=== PATIENT | male | born 1990 | race Caucasian/White ===

== ENCOUNTER 2022-04-06 20:20 | Emergency (ER) | payer OTHER ==
[2022-04-06] MEDS ORDERED: Pantoprazole 40 MG VIAL ONE (20:53)
[2022-04-06] MEDS ORDERED: Famotidine/PF 20 mg/2ml Vial ONE (20:53)
[2022-04-06 21:15] LABS: Bilirubin Negative (Negative); Blood, Urine Negative (Negative); Clarity Clear (Clear); Glucose, Urine (Dipstick) Normal (Negative); Ketone, Urine Negative (Negative); Leukocyte Negative Leu/uL (Negative); Nitrite Negative (Negative); Protein, Urine (Dipstick) 20 mg/dL (Neg-Trace); Specific Gravity, Urine 1.032 (1.002-1.036); Urobilinogen 3 mg/dL (Less than 2)
[2022-04-06 21:15] LABS: #Basophils 0.1 thou/uL (0.0-0.2); #Eosinphils 0.1 thou/uL (0.0-0.7); #Lymphocytes 2.5 thou/uL (1.20-3.40); #Monocytes 0.7 thou/uL (0.11-0.59); #Neutrophils 3.7 thou/uL (1.40-6.50); %Basophils 0.9 % (0.0-1.0); %Eosinophils 2.1 % (0.0-10.0); %Lymphocytes 35.1 % (21.0-51.0); %Monocytes 9.5 % (0.0-10.0); %Neutrophils 52.4 % (42.0-75.0); Hemoglobin 16.5 g/dL (14.0-18.0); Mean Corpuscular HGB CONC 33.6 g/dL (32.0-36.0); Mean Corpuscular Hemoglobin 30.8 pg (27.0-31.0); Mean Corpuscular Volume 91.7 fL (78.0-98.0); Mean Platelet Volume 6.2 fL (7.4-10.4); Platelet Count 261 thou/uL (130-400); RBC Distribution Width 12.2 % (11.5-14.5); Red Blood Cell (RBC) Count 5.34 mill/uL (4.70-6.10)
[2022-04-06 21:37] LABS: ALT (SGPT) 55 U/L (8-55); AST (SGOT) 27 U/L (5-34); Albumin 4.2 g/dL (3.5-5.0); Alkaline Phosphatase 80 U/L (40-110); Anion Gap 13 mmol/L (10-20); BUN (Urea Nitrogen) 11 mg/dL (8.9-20.6); Bilirubin, Total 0.5 mg/dL (0.2-1.2); Calc. Creatinine Clearance 0 mL/min (70-130); Calcium 8.8 mg/dL (7.8-10.44); Carbon Dioxide 27 mmol/L (22-29); Chloride 104 mmol/L (98-107); Globulin 3.4 g/dL (2.4-3.5); Glucose 116 mg/dL (70-105); Lipase 31 U/L (8-78); Potassium 3.5 mmol/L (3.5-5.1); Protein, Total 7.6 g/dL (6.0-8.3); Sodium 140 mmol/L (136-145)
== END 2022-04-06 22:24 | disposition home or self-care (01) ==
LOC: ERS 20:20
DX: R10.84 Generalized abdominal pain (principal); I10 Essential (primary) hypertension; K21.9 Gastro-esophageal reflux disease without esophagitis; Z79.899 Other long term (current) drug therapy
CPT/HCPCS: 36415; 80053; 81003; 83690; 84484; 85025; 93005; 96361; 96374; 96375; C9113; S0028

== ENCOUNTER 2022-04-11 00:51 | Emergency (ER) | payer OTHER | END 2022-04-11 03:42 | disposition home or self-care (01) | LOC: ERS 00:51 | DX: I49.1 Atrial premature depolarization (principal); R00.2 Palpitations; I10 Essential (primary) hypertension; I48.92 Unspecified atrial flutter; K21.9 Gastro-esophageal reflux disease without esophagitis; Z79.899 Other long term (current) drug therapy | CPT/HCPCS: 93005 ==

== ENCOUNTER 2022-04-20 11:31 | Emergency (ER) | payer OTHER ==
[2022-04-20 13:24] LABS: #Basophils 0.1 thou/uL (0.0-0.2); #Eosinphils 0.1 thou/uL (0.0-0.7); #Lymphocytes 1.7 thou/uL (1.20-3.40); #Monocytes 0.6 thou/uL (0.11-0.59); #Neutrophils 5.9 thou/uL (1.40-6.50); %Basophils 0.9 % (0.0-1.0); %Eosinophils 1.2 % (0.0-10.0); %Lymphocytes 20.7 % (21.0-51.0); %Monocytes 6.6 % (0.0-10.0); %Neutrophils 70.6 % (42.0-75.0); Mean Corpuscular HGB CONC 34.1 g/dL (32.0-36.0); Mean Corpuscular Hemoglobin 30.9 pg (27.0-31.0); Mean Corpuscular Volume 90.8 fL (78.0-98.0); Mean Platelet Volume 6.5 fL (7.4-10.4); Platelet Count 251 thou/uL (130-400); RBC Distribution Width 11.9 % (11.5-14.5); Red Blood Cell (RBC) Count 5.16 mill/uL (4.70-6.10); White Blood Cell (WBC) Count 8.3 thou/uL (4.8-10.8)
[2022-04-20 13:48] LABS: ALT (SGPT) 59 U/L (8-55); AST (SGOT) 26 U/L (5-34); Albumin 4.5 g/dL (3.5-5.0); Alkaline Phosphatase 82 U/L (40-110); Anion Gap 13 mmol/L (10-20); BUN (Urea Nitrogen) 9 mg/dL (8.9-20.6); Bilirubin, Total 0.6 mg/dL (0.2-1.2); Calc. Creatinine Clearance 0 mL/min (70-130); Calcium 9.4 mg/dL (7.8-10.44); Carbon Dioxide 26 mmol/L (22-29); Chloride 106 mmol/L (98-107); Globulin 3.1 g/dL (2.4-3.5); Glucose 96 mg/dL (70-105); Potassium 4.1 mmol/L (3.5-5.1); Protein, Total 7.6 g/dL (6.0-8.3); Sodium 141 mmol/L (136-145)
== END 2022-04-20 14:56 | disposition home or self-care (01) ==
LOC: ERS 11:31
DX: R60.0 Localized edema (principal); I10 Essential (primary) hypertension; K21.9 Gastro-esophageal reflux disease without esophagitis; Z79.899 Other long term (current) drug therapy
CPT/HCPCS: 36415; 71045; 80053; 83880; 84484; 85025; 93005

== ENCOUNTER 2022-04-28 06:16 | Emergency (ER) | payer OTHER ==
[2022-04-28 08:47] LABS: #Basophils 0.1 thou/uL (0.0-0.2); #Eosinphils 0.1 thou/uL (0.0-0.7); #Lymphocytes 1.9 thou/uL (1.20-3.40); #Monocytes 0.6 thou/uL (0.11-0.59); #Neutrophils 4.6 thou/uL (1.40-6.50); %Basophils 1.2 % (0.0-1.0); %Eosinophils 1.7 % (0.0-10.0); %Lymphocytes 25.5 % (21.0-51.0); %Monocytes 8.3 % (0.0-10.0); %Neutrophils 63.4 % (42.0-75.0); Hemoglobin 16.2 g/dL (14.0-18.0); Mean Corpuscular HGB CONC 34.2 g/dL (32.0-36.0); Mean Corpuscular Hemoglobin 30.7 pg (27.0-31.0); Mean Platelet Volume 6.6 fL (7.4-10.4); Platelet Count 247 thou/uL (130-400); Red Blood Cell (RBC) Count 5.27 mill/uL (4.70-6.10); White Blood Cell (WBC) Count 7.3 thou/uL (4.8-10.8)
[2022-04-28 09:09] LABS: ALT (SGPT) 63 U/L (8-55); AST (SGOT) 28 U/L (5-34); Albumin 4.2 g/dL (3.5-5.0); Alkaline Phosphatase 87 U/L (40-110); Anion Gap 12 mmol/L (10-20); BUN (Urea Nitrogen) 11 mg/dL (8.9-20.6); Bilirubin, Total 0.5 mg/dL (0.2-1.2); Calc. Creatinine Clearance 0 mL/min (70-130); Calcium 8.9 mg/dL (7.8-10.44); Carbon Dioxide 27 mmol/L (22-29); Chloride 104 mmol/L (98-107); Globulin 3.1 g/dL (2.4-3.5); Glucose 89 mg/dL (70-105); Potassium 4.1 mmol/L (3.5-5.1); Protein, Total 7.3 g/dL (6.0-8.3); Sodium 139 mmol/L (136-145)
== END 2022-04-28 10:24 | disposition home or self-care (01) ==
LOC: ERS 06:16
DX: R00.2 Palpitations (principal); I10 Essential (primary) hypertension; R60.0 Localized edema; K21.9 Gastro-esophageal reflux disease without esophagitis
CPT/HCPCS: 36415; 71045; 80053; 83880; 84484; 85025; 93005

== ENCOUNTER 2022-05-10 01:35 | Emergency (ER) | payer OTHER ==
[2022-05-10 02:34] LABS: #Basophils 0.1 thou/uL (0.0-0.2); #Eosinphils 0.2 thou/uL (0.0-0.7); #Lymphocytes 2.2 thou/uL (1.20-3.40); #Monocytes 0.7 thou/uL (0.11-0.59); #Neutrophils 5.7 thou/uL (1.40-6.50); %Basophils 0.9 % (0.0-1.0); %Eosinophils 2.1 % (0.0-10.0); %Lymphocytes 24.8 % (21.0-51.0); %Monocytes 8.2 % (0.0-10.0); %Neutrophils 63.9 % (42.0-75.0); Mean Corpuscular HGB CONC 33.9 g/dL (32.0-36.0); Mean Corpuscular Hemoglobin 30.8 pg (27.0-31.0); Mean Platelet Volume 6.5 fL (7.4-10.4); Platelet Count 247 thou/uL (130-400); RBC Distribution Width 12.2 % (11.5-14.5); Red Blood Cell (RBC) Count 5.19 mill/uL (4.70-6.10)
[2022-05-10 02:55] LABS: ALT (SGPT) 52 U/L (8-55); AST (SGOT) 24 U/L (5-34); Alkaline Phosphatase 80 U/L (40-110); Anion Gap 13 mmol/L (10-20); BUN (Urea Nitrogen) 14 mg/dL (8.9-20.6); Bilirubin, Total 0.7 mg/dL (0.2-1.2); Calc. Creatinine Clearance 0 mL/min (70-130); Calcium 9.4 mg/dL (7.8-10.44); Carbon Dioxide 25 mmol/L (22-29); Chloride 103 mmol/L (98-107); Estimated GFR 124; Globulin 3.2 g/dL (2.4-3.5); Glucose 102 mg/dL (70-105); Lipase 29 U/L (8-78); Potassium 3.4 mmol/L (3.5-5.1); Protein, Total 7.2 g/dL (6.0-8.3); Sodium 138 mmol/L (136-145)
== END 2022-05-10 04:35 | disposition home or self-care (01) ==
LOC: ERS 01:35
DX: R00.2 Palpitations (principal); F41.9 Anxiety disorder, unspecified; I10 Essential (primary) hypertension; K21.9 Gastro-esophageal reflux disease without esophagitis; G47.30 Sleep apnea, unspecified; Z79.899 Other long term (current) drug therapy
CPT/HCPCS: 36415; 80053; 83690; 84484; 85025; 93005

== ENCOUNTER 2022-07-18 18:09 | Emergency (ER) | payer OTHER ==
[2022-07-18 19:04] LABS: #Basophils 0.1 thou/uL (0.0-0.2); #Eosinphils 0.1 thou/uL (0.0-0.7); #Lymphocytes 2.9 thou/uL (1.20-3.40); #Monocytes 0.9 thou/uL (0.11-0.59); #Neutrophils 5.2 thou/uL (1.40-6.50); %Basophils 0.9 % (0.0-1.0); %Eosinophils 1.5 % (0.0-10.0); %Lymphocytes 31.4 % (21.0-51.0); %Monocytes 9.4 % (0.0-10.0); %Neutrophils 56.8 % (42.0-75.0); Hemoglobin 17.3 g/dL (14.0-18.0); Mean Corpuscular HGB CONC 35.1 g/dL (32.0-36.0); Mean Corpuscular Hemoglobin 31.5 pg (27.0-31.0); Mean Corpuscular Volume 89.5 fL (78.0-98.0); Mean Platelet Volume 6.4 fL (7.4-10.4); Platelet Count 273 thou/uL (130-400); Red Blood Cell (RBC) Count 5.51 mill/uL (4.70-6.10); White Blood Cell (WBC) Count 9.2 thou/uL (4.8-10.8)
[2022-07-18 19:24] LABS: ALT (SGPT) 49 U/L (8-55); AST (SGOT) 24 U/L (5-34); Albumin 4.2 g/dL (3.5-5.0); Alkaline Phosphatase 86 U/L (40-110); Anion Gap 16 mmol/L (10-20); BUN (Urea Nitrogen) 10 mg/dL (8.9-20.6); Bilirubin, Total 0.5 mg/dL (0.2-1.2); Calc. Creatinine Clearance 0 mL/min (70-130); Calcium 9.2 mg/dL (7.8-10.44); Carbon Dioxide 22 mmol/L (22-29); Chloride 103 mmol/L (98-107); Estimated GFR 120; Globulin 3.6 g/dL (2.4-3.5); Glucose 121 mg/dL (70-105); Lipase 37 U/L (8-78); Potassium 3.9 mmol/L (3.5-5.1); Protein, Total 7.8 g/dL (6.0-8.3); Sodium 137 mmol/L (136-145)
[2022-07-18] MEDS ORDERED: Famotidine 20 MG TAB ONE (19:29)
[2022-07-18] MEDS ORDERED: Lidocaine Viscous Sol 2% 15 ml UD Cup ONE (19:29)
[2022-07-18] MEDS ORDERED: Mag-Al 1200 mg/1200 mg/30 ML UDCUP ONE (19:29)
== END 2022-07-18 21:03 | disposition home or self-care (01) ==
LOC: ERS 18:09
DX: R07.9 Chest pain, unspecified (principal); K29.70 Gastritis, unspecified, without bleeding; I10 Essential (primary) hypertension
CPT/HCPCS: 36415; 71045; 80053; 83690; 84484; 85025; 93005

== ENCOUNTER 2022-08-03 19:27 | Emergency (ER) | payer OTHER ==
[2022-08-03 20:03] LABS: #Basophils 0.1 thou/uL (0.0-0.2); #Eosinphils 0.1 thou/uL (0.0-0.7); #Lymphocytes 3.1 thou/uL (1.20-3.40); #Monocytes 0.8 thou/uL (0.11-0.59); #Neutrophils 5.5 thou/uL (1.40-6.50); %Basophils 0.9 % (0.0-1.0); %Eosinophils 1.5 % (0.0-10.0); %Lymphocytes 32.1 % (21.0-51.0); %Monocytes 8.7 % (0.0-10.0); %Neutrophils 56.7 % (42.0-75.0); Hemoglobin 17.6 g/dL (14.0-18.0); Mean Corpuscular HGB CONC 34.3 g/dL (32.0-36.0); Mean Corpuscular Volume 90.5 fL (78.0-98.0); Mean Platelet Volume 6.5 fL (7.4-10.4); Platelet Count 278 thou/uL (130-400); RBC Distribution Width 11.9 % (11.5-14.5); Red Blood Cell (RBC) Count 5.68 mill/uL (4.70-6.10); White Blood Cell (WBC) Count 9.7 thou/uL (4.8-10.8)
[2022-08-03 20:23] LABS: ALT (SGPT) 55 U/L (8-55); AST (SGOT) 21 U/L (5-34); Albumin 4.6 g/dL (3.5-5.0); Alkaline Phosphatase 103 U/L (40-110); Anion Gap 14 mmol/L (10-20); BUN (Urea Nitrogen) 10 mg/dL (8.9-20.6); Bilirubin, Total 0.6 mg/dL (0.2-1.2); Calc. Creatinine Clearance 0 mL/min (70-130); Carbon Dioxide 26 mmol/L (22-29); Chloride 103 mmol/L (98-107); Estimated GFR 119; Globulin 3.2 g/dL (2.4-3.5); Glucose 126 mg/dL (70-105); Lipase 49 U/L (8-78); Potassium 3.7 mmol/L (3.5-5.1); Protein, Total 7.8 g/dL (6.0-8.3); Sodium 139 mmol/L (136-145)
[2022-08-03] MEDS ORDERED: Lidocaine Viscous Sol 2% 15 ml UD Cup ONE (20:46)
[2022-08-03] MEDS ORDERED: Mag-Al 1200 mg/1200 mg/30 ML UDCUP ONE (20:46)
== END 2022-08-03 22:19 | disposition home or self-care (01) ==
LOC: ERS 19:27
DX: K29.00 Acute gastritis without bleeding (principal); I10 Essential (primary) hypertension
CPT/HCPCS: 36415; 71045; 80053; 83690; 84484; 85025; 93005

== ENCOUNTER 2022-08-14 19:44 | Emergency (ER) | payer OTHER | END 2022-08-14 22:59 | disposition home or self-care (01) | LOC: ERS 19:44 | DX: I10 Essential (primary) hypertension (principal); Z79.899 Other long term (current) drug therapy | CPT/HCPCS: 71045 ==

== ENCOUNTER 2022-08-18 15:20 | Emergency (ER) | payer OTHER | END 2022-08-18 17:52 | disposition home or self-care (01) | LOC: ERS 15:20 | DX: R09.81 Nasal congestion (principal); I10 Essential (primary) hypertension; Z79.899 Other long term (current) drug therapy | CPT/HCPCS: 99283 ==

== ENCOUNTER 2022-08-20 13:26 | Emergency (ER) | payer OTHER | END 2022-08-20 16:31 | disposition left against medical advice (07) | LOC: ERS 13:26 | DX: Z53.21 Procedure and treatment not carried out due to patient leaving prior to being seen by health care provider (principal) ==

== ENCOUNTER 2022-08-21 16:47 | Emergency (ER) | payer OTHER ==
[2022-08-21 20:55] LABS: #Basophils 0.1 thou/uL (0.0-0.2); #Eosinphils 0.1 thou/uL (0.0-0.7); #Lymphocytes 2.8 thou/uL (1.20-3.40); #Monocytes 0.8 thou/uL (0.11-0.59); #Neutrophils 5.1 thou/uL (1.40-6.50); %Basophils 0.6 % (0.0-1.0); %Eosinophils 1.2 % (0.0-10.0); %Lymphocytes 31.6 % (21.0-51.0); %Monocytes 9.3 % (0.0-10.0); %Neutrophils 57.4 % (42.0-75.0); Hemoglobin 17.2 g/dL (14.0-18.0); Mean Corpuscular HGB CONC 34.2 g/dL (32.0-36.0); Mean Corpuscular Hemoglobin 30.5 pg (27.0-31.0); Mean Corpuscular Volume 89.2 fL (78.0-98.0); Mean Platelet Volume 6.6 fL (7.4-10.4); Platelet Count 288 thou/uL (130-400); RBC Distribution Width 11.6 % (11.5-14.5); Red Blood Cell (RBC) Count 5.63 mill/uL (4.70-6.10); White Blood Cell (WBC) Count 8.8 thou/uL (4.8-10.8)
[2022-08-21 21:19] LABS: ALT (SGPT) 59 U/L (8-55); AST (SGOT) 27 U/L (5-34); Albumin 4.4 g/dL (3.5-5.0); Alkaline Phosphatase 96 U/L (40-110); Anion Gap 15 mmol/L (10-20); BUN (Urea Nitrogen) 10 mg/dL (8.9-20.6); Bilirubin, Total 0.7 mg/dL (0.2-1.2); Calc. Creatinine Clearance 0 mL/min (70-130); Carbon Dioxide 25 mmol/L (22-29); Chloride 101 mmol/L (98-107); Estimated GFR 120; Globulin 3.4 g/dL (2.4-3.5); Glucose 100 mg/dL (70-105); Magnesium 2.1 mg/dL (1.6-2.6); Potassium 3.2 mmol/L (3.5-5.1); Protein, Total 7.8 g/dL (6.0-8.3); Sodium 138 mmol/L (136-145)
[2022-08-21] MEDS ORDERED: Potassium Chloride 20 MEQ TAB ONE (22:31)
== END 2022-08-21 22:58 | disposition home or self-care (01) ==
LOC: ERS 16:47
DX: E87.6 Hypokalemia (principal); R09.81 Nasal congestion; R06.02 Shortness of breath; Z79.899 Other long term (current) drug therapy; I10 Essential (primary) hypertension
CPT/HCPCS: 36415; 71045; 80053; 83735; 84443; 84484; 85025; 93005

== ENCOUNTER 2022-10-11 16:44 | Emergency (ER) | payer OTHER | END 2022-10-11 18:31 | disposition home or self-care (01) | LOC: ERS 16:44 | DX: Z48.813 Encounter for surgical aftercare following surgery on the respiratory system (principal); I10 Essential (primary) hypertension; K21.9 Gastro-esophageal reflux disease without esophagitis; Z79.899 Other long term (current) drug therapy | CPT/HCPCS: 99283 ==

== ENCOUNTER 2022-10-14 11:08 | Emergency (ER) | payer OTHER ==
[2022-10-14 13:04] LABS: #Basophils 0.1 thou/uL (0.0-0.2); #Eosinphils 0.1 thou/uL (0.0-0.7); #Lymphocytes 2.2 thou/uL (1.20-3.40); #Monocytes 0.7 thou/uL (0.11-0.59); #Neutrophils 5.5 thou/uL (1.40-6.50); %Basophils 0.6 % (0.0-1.0); %Eosinophils 1.7 % (0.0-10.0); %Lymphocytes 25.6 % (21.0-51.0); %Monocytes 8.3 % (0.0-10.0); %Neutrophils 63.8 % (42.0-75.0); Hemoglobin 15.9 g/dL (14.0-18.0); Mean Corpuscular HGB CONC 35.7 g/dL (32.0-36.0); Mean Corpuscular Hemoglobin 31.8 pg (27.0-31.0); Mean Platelet Volume 6.6 fL (7.4-10.4); Platelet Count 288 10x3/uL (130-400); RBC Distribution Width 11.8 % (11.5-14.5); Red Blood Cell (RBC) Count 5.01 mill/uL (4.70-6.10); White Blood Cell (WBC) Count 8.6 10x3/uL (4.8-10.8)
[2022-10-14 13:24] LABS: ALT (SGPT) 54 U/L (8-55); AST (SGOT) 26 U/L (5-34); Albumin 4.5 g/dL (3.5-5.0); Alkaline Phosphatase 91 U/L (40-110); Anion Gap 15 mmol/L (10-20); BUN (Urea Nitrogen) 10 mg/dL (8.9-20.6); Bilirubin, Total 0.6 mg/dL (0.2-1.2); Calc. Creatinine Clearance 0 mL/min (70-130); Calcium 8.9 mg/dL (7.8-10.44); Carbon Dioxide 25 mmol/L (22-29); Chloride 102 mmol/L (98-107); Estimated GFR 119; Globulin 2.9 g/dL (2.4-3.5); Glucose 97 mg/dL (70-105); Protein, Total 7.4 g/dL (6.0-8.3); Sodium 138 mmol/L (136-145)
== END 2022-10-14 14:45 | disposition short-term general hospital (02) ==
LOC: ERS 11:08
DX: G89.18 Other acute postprocedural pain (principal); I10 Essential (primary) hypertension
CPT/HCPCS: 36415; 80053; 85025; 99283

== ENCOUNTER 2022-10-19 08:38 | Emergency (ER) | payer OTHER ==
[2022-10-19 09:53] LABS: #Eosinphils 0.2 thou/uL (0.0-0.7); #Lymphocytes 2.1 thou/uL (1.20-3.40); #Monocytes 0.8 thou/uL (0.11-0.59); #Neutrophils 6.7 thou/uL (1.40-6.50); %Basophils 0.4 % (0.0-1.0); %Eosinophils 1.8 % (0.0-10.0); %Lymphocytes 21.1 % (21.0-51.0); %Monocytes 8.1 % (0.0-10.0); %Neutrophils 68.6 % (42.0-75.0); Hemoglobin 16.1 g/dL (14.0-18.0); Mean Corpuscular Hemoglobin 31.5 pg (27.0-31.0); Mean Corpuscular Volume 89.9 fl (78.0-98.0); Mean Platelet Volume 6.6 fL (7.4-10.4); Platelet Count 305 10x3/uL (130-400); Red Blood Cell (RBC) Count 5.13 mill/uL (4.70-6.10); White Blood Cell (WBC) Count 9.7 10x3/uL (4.8-10.8)
[2022-10-19 10:00] LABS: ALT (SGPT) 49 U/L (8-55); AST (SGOT) 22 U/L (5-34); Albumin 4.4 g/dL (3.5-5.0); Alkaline Phosphatase 94 U/L (40-110); Anion Gap 14 mmol/L (10-20); BUN (Urea Nitrogen) 12 mg/dL (8.9-20.6); Bilirubin, Total 0.5 mg/dL (0.2-1.2); Calc. Creatinine Clearance 0 mL/min (70-130); Calcium 9.1 mg/dL (7.8-10.44); Carbon Dioxide 24 mmol/L (22-29); Chloride 107 mmol/L (98-107); Estimated GFR 121; Globulin 2.7 g/dL (2.4-3.5); Glucose 123 mg/dL (70-105); Lipase 32 U/L (8-78); Protein, Total 7.1 g/dL (6.0-8.3); Sodium 141 mmol/L (136-145)
[2022-10-19] MEDS ORDERED: Iopamidol-370 76% 500 ML 1 ML ONE (11:20)
[2022-10-19 12:51] LABS: Magnesium 2.1 mg/dL (1.6-2.6)
== END 2022-10-19 13:55 | disposition home or self-care (01) ==
LOC: ERS 08:38
DX: R00.2 Palpitations (principal); I10 Essential (primary) hypertension; K21.9 Gastro-esophageal reflux disease without esophagitis; Z79.899 Other long term (current) drug therapy
CPT/HCPCS: 36415; 71045; 71275; 80053; 83690; 83735; 84443; 84484; 85025; 85379; 93005; 94760; Q9967

== ENCOUNTER 2023-05-17 20:13 | Emergency (ER) | payer OTHER ==
[2023-05-17 20:57] LABS: #Basophils 0.1 thou/uL (0.0-0.2); #Eosinphils 0.3 thou/uL (0.0-0.7); #Monocytes 0.7 thou/uL (0.11-0.59); #Neutrophils 5.1 thou/uL (1.40-6.50); %Basophils 0.9 % (0.0-1.0); %Eosinophils 3.3 % (0.0-10.0); %Monocytes 7.9 % (0.0-10.0); %Neutrophils 59.7 % (42.0-75.0); Hemoglobin 14.3 g/dL (14.0-18.0); Mean Corpuscular HGB CONC 34.2 g/dL (32.0-36.0); Mean Corpuscular Hemoglobin 30.3 pg (27.0-31.0); Mean Corpuscular Volume 88.6 fl (78.0-98.0); Mean Platelet Volume 9.3 fL (7.4-10.4); Platelet Count 262 10x3/uL (130-400); RBC Distribution Width 12.7 % (11.5-14.5); Red Blood Cell (RBC) Count 4.72 mill/uL (4.70-6.10); White Blood Cell (WBC) Count 8.5 10x3/uL (4.8-10.8)
[2023-05-17 21:18] LABS: ALT (SGPT) 30 U/L (8-55); AST (SGOT) 20 U/L (5-34); Albumin 4.5 g/dL (3.5-5.0); Alkaline Phosphatase 114 U/L (40-110); Anion Gap 13 mmol/L (10-20); BUN (Urea Nitrogen) 13 mg/dL (8.9-20.6); Bilirubin, Total 0.3 mg/dL (0.2-1.2); Calc. Creatinine Clearance 0 mL/min (70-130); Calcium 9.5 mg/dL (7.8-10.44); Carbon Dioxide 25 mmol/L (22-29); Chloride 105 mmol/L (98-107); Estimated GFR 122; Globulin 3.3 g/dL (2.4-3.5); Glucose 116 mg/dL (70-105); Potassium 3.7 mmol/L (3.5-5.1); Protein, Total 7.8 g/dL (6.0-8.3); Sodium 139 mmol/L (136-145)
[2023-05-17 21:19] LABS: Lipase 41 U/L (8-78)
== END 2023-05-17 23:05 | disposition home or self-care (01) ==
LOC: ERS 20:13
DX: R10.9 Unspecified abdominal pain (principal); I10 Essential (primary) hypertension; K21.9 Gastro-esophageal reflux disease without esophagitis
CPT/HCPCS: 71045; 80053; 83690; 84484; 85025; 93005

== ENCOUNTER 2024-04-28 15:24 | Emergency (ER) | payer OTHER ==
[2024-04-28 16:31] LABS: #Basophils 0.06 10x3/uL (0.0-0.2); %Basophils 0.9 % (0.0-1.0); %Eosinophils 3.2 % (0.0-10.0); %Lymphocytes 28.3 % (21.0-51.0); %Monocytes 7.7 % (0.0-10.0); %Neutrophils 59.7 % (42.0-75.0); Hematocrit 42.9 % (42.0-52.0); Hemoglobin 14.8 g/dL (14.0-18.0); Mean Corpuscular HGB CONC 34.5 g/dL (32.0-36.0); Mean Corpuscular Hemoglobin 30.4 pg (27.0-31.0); Mean Corpuscular Volume 88.1 fL (78.0-98.0); Mean Platelet Volume 8.9 fL (7.4-10.4); Platelet Count 237 10x3/uL (130-400); RBC Distribution Width 12.2 % (11.5-14.5); Red Blood Cell (RBC) Count 4.87 mill/uL (4.70-6.10)
[2024-04-28 16:47] LABS: ALT (SGPT) 32 U/L (8-55); AST (SGOT) 20 U/L (5-34); Albumin 4.3 g/dL (3.5-5.0); Alkaline Phosphatase 99 U/L (40-110); Anion Gap 13 mmol/L (10-20); BUN (Urea Nitrogen) 14 mg/dL (8.9-20.6); Bilirubin, Total 0.4 mg/dL (0.2-1.2); Calc. Creatinine Clearance 0 mL/min (70-130); Calcium 9.3 mg/dL (7.8-10.44); Carbon Dioxide 22 mmol/L (22-29); Chloride 107 mmol/L (98-107); Estimated GFR 121; Globulin 3.4 g/dL (2.4-3.5); Glucose 106 mg/dL (70-105); Lipase 38 U/L (8-78); Potassium 4.2 mmol/L (3.5-5.1); Protein, Total 7.7 g/dL (6.0-8.3); Sodium 138 mmol/L (136-145)
[2024-04-28 17:04] LABS: Troponin I Less than 0.010 ng/mL (< 0.028)
[2024-04-28] MEDS ORDERED: Dicyclomine 20 MG TAB ONE (17:36)
== END 2024-04-28 18:03 | disposition home or self-care (01) ==
LOC: ERS 15:24
DX: K30 Functional dyspepsia (principal); I10 Essential (primary) hypertension; K21.9 Gastro-esophageal reflux disease without esophagitis; Z79.899 Other long term (current) drug therapy
CPT/HCPCS: 36415; 80053; 83690; 84484; 85025; 93005

== ENCOUNTER 2024-05-30 15:59 | Emergency (ER) | payer OTHER ==
[~2024-05-30 15:59] MED LIST: Iopamidol-370 76% 500 ML MDV (1 ML CHARGE) ONE
[2024-05-30 17:40] LABS: #Basophils 0.04 10x3/uL (0.0-0.2); %Basophils 0.3 % (0.0-1.0); %Eosinophils 0.8 % (0.0-10.0); %Lymphocytes 4.2 % (21.0-51.0); %Monocytes 4.8 % (0.0-10.0); %Neutrophils 89.7 % (42.0-75.0); Hematocrit 46.1 % (42.0-52.0); Hemoglobin 16.4 g/dL (14.0-18.0); Mean Corpuscular HGB CONC 35.6 g/dL (32.0-36.0); Mean Corpuscular Hemoglobin 30.7 pg (27.0-31.0); Mean Corpuscular Volume 86.3 fL (78.0-98.0); Mean Platelet Volume 8.7 fL (7.4-10.4); Platelet Count 234 10x3/uL (130-400); RBC Distribution Width 11.9 % (11.5-14.5); Red Blood Cell (RBC) Count 5.34 mill/uL (4.70-6.10)
[2024-05-30] MEDS ORDERED: Ketorolac Tromethamine 30 MG (1 mL) VIAL ONE (17:40)
[2024-05-30] MEDS ORDERED: Ondansetron PF 4 MG/2 ML Vial ONE ×2 (17:40→21:46)
[2024-05-30 17:55] LABS: Lipase 25 U/L (8-78)
[2024-05-30 17:56] LABS: ALT (SGPT) 25 U/L (8-55); AST (SGOT) 22 U/L (5-34); Albumin 4.8 g/dL (3.5-5.0); Alkaline Phosphatase 94 U/L (40-110); Anion Gap 13 mmol/L (10-20); BUN (Urea Nitrogen) 17 mg/dL (8.9-20.6); Calc. Creatinine Clearance 0 mL/min (70-130); Calcium 9.5 mg/dL (7.8-10.44); Carbon Dioxide 23 mmol/L (22-29); Chloride 107 mmol/L (98-107); Estimated GFR 119; Globulin 2.8 g/dL (2.4-3.5); Glucose 110 mg/dL (70-105); Potassium 3.8 mmol/L (3.5-5.1); Protein, Total 7.6 g/dL (6.0-8.3); Sodium 139 mmol/L (136-145)
[2024-05-30 17:57] LABS: Acetaminophen Less than 10 mcg/mL (10.0-30.0); Alcohol Less than 10.0 mg/dL (Less than 10); Salicylate Less than 8.0 mg/dL (15.0-30.0)
[2024-05-30] MEDS ORDERED: Dicyclomine 20 MG TAB ONE (21:09)
[2024-05-30] MEDS ORDERED: Sucralfate 1 GM/10 ML UDCUP ONE (22:51)
[2024-05-30] MEDS ORDERED: Acetaminophen 500 MG TAB ONE (23:36)
== END 2024-05-30 23:40 | disposition home or self-care (01) ==
LOC: ERS 15:59
DX: K52.9 Noninfective gastroenteritis and colitis, unspecified (principal); I10 Essential (primary) hypertension
CPT/HCPCS: 36415; 74177; 80053; 80307; 83690; 85025; 96361; 96372; 96374; 96375; 96376; J1790; J1885; J2405; Q9967